=== PATIENT | male | born 1970 | race African-American/Black ===

== ENCOUNTER 2016-06-21 13:14 | Emergency (ER) | payer MEDICAID ==
[~2016-06-21] VITALS: Ht 177.8 cm; Wt 80.0 kg
[~2016-06-21 13:14] MED LIST: GABA-290 PO; LEVO750T46 PO; LISI-604 PO; METF10002 PO
[2016-06-21] MEDS ORDERED: SODIUM CHLORIDE 0.9% 1,000 ML IV ONE ×2 (14:06→15:22)
[2016-06-21 14:25] LABS: BASOPHILS % 0.8 % (0.0-2.0); EOSINOPHILS % 0.6 % (0.0-5.0); HEMATOCRIT. 36.7 % (42.0-52.0); HEMOGLOBIN. 12.2 g/dL (14.0-18.0); LYMPHOCYTES % 29.9 % (20.0-50.0); MEAN CORPUSCULAR HGB CONC 33.3 g/dL (31.0-37.0); MEAN CORPUSCULAR VOLUME 90.2 fL (80.0-94.0); MEAN PLATELET VOLUME 9.3 fl (7.4-10.4); MONOCYTES % 8.2 % (2.0-8.0); NEUTROPHILS % 60.5 % (40.0-76.0); PLATELET 268 x1000/uL (130-400); RED BLOOD CELL COUNT 4.07 mill/uL (4.7-6.1); RED CELL DISTRIBUTION WIDTH 12.6 % (11.6-14.6); WHITE BLOOD COUNT 7.3 x1000/uL (4.5-11.0)
[2016-06-21 14:36] LABS: CHLORIDE 97 mEq/L (98-107)
[2016-06-21 14:37] LABS: INDEX HEMOLYSI 1 (1-3); INDEX ICTERIC 1 (1-4); INDEX LIPEMIC 1 (1-3)
[2016-06-21 14:42] LABS: ALBUMIN 3.7 g/dL (3.4-5.0); ANION GAP 12; CALCIUM 9.4 mg/dL (8.5-10.1); CARBON DIOXIDE 29 mEq/L (21-32); UREA NITROGEN BLOOD 18 mg/dL (7-21)
[2016-06-21 14:45] LABS: ALANINE AMINOTRANSFERASE 20 IU/L (13-61); BETA HYDROXYBUTYRATE 0.1 mMol/L (0.0-0.3); eGFR > 60 mL/min (>60)
[2016-06-21] MEDS ORDERED: INSULIN REGULAR (HUMULIN R) 300UNITS/3ML IV ONE (15:30)
[2016-06-21 16:30] VITALS: BP 133/76
== END 2016-06-21 17:50 | disposition home or self-care (01) ==
LOC: ER 14:32
DX: E11.65 Type 2 diabetes mellitus with hyperglycemia (principal); I10 Essential (primary) hypertension; E11.9 Type 2 diabetes mellitus without complications; F17.200 Nicotine dependence, unspecified, uncomplicated; Z79.84 Long term (current) use of oral hypoglycemic drugs; Z91.14 Patient's other noncompliance with medication regimen
CPT/HCPCS: 36415; 80053; 82010; 85025; 96361; 96374; 99285; J1815; Z7610; J7030